=== PATIENT | female | born 1970 | race African-American/Black ===

== ENCOUNTER 2024-12-02 14:21 | Emergency (ER) | payer MEDICAID ==
[~2024-12-02] VITALS: Ht 154.9 cm; Wt 80.6 kg
[~2024-12-02 14:21] MED LIST: CLON0.1T PO; MET25T PO
[2024-12-02 15:02] VITALS: BP 103/54; PULSE 54; RESP 18; TEMP 97.8; O2SAT 94
[2024-12-02 15:14] LABS: Urine Bacteria None Seen /hpf (None Seen)
--- NOTE | 2024-12-02 15:21 | ED.PDOC ---
History of Present Illness HPI Comments A 54 YEAR OLD FEMALE PRESENTS TO THE ED WITH COMPLAINT OF AUDITORY HALLUCINATIONS DUE TO ALCOHOL WITHDRAWAL. PATIENT STATES SHE HAS A HISTORY OF ALCOHOLISM AND HAS NOT BEEN DRINKING ALCOHOL FOR THE PAST 3 DAYS. PATIENT REPORTS SHE HAS BEEN EXPERIENCING AUDITORY HALLUCINATIONS DUE TO WITHDRAWING F ROM ALCOHOL. PATIENT IS ALSO REQUESTING A MEDICATION REFILL. PATIENT DENIES SI, HI, FEVER, CHILLS, SHORTNESS OF BREATH, CHEST PAIN, ABDOMINAL PAIN, NAUSEA, VOMITING, HEADACHE, OR OTHER COMPLAINTS. NO OTHER SYMPTOMS OR MODIFYING FACTORS AT THIS TIME. PATIENT IS ALERT, ORIENTED X 4, AND HAS STEADY GAIT. Chief Complaint: Withdrawal Time Seen by MD: 14:54 Reviewed Notes: Nurses Notes, Medications, Allergies Allergies: Coded Allergies: Morphine (Verified Allergy, Unknown, 12/11/23) Home Meds Active Scripts Hydroxyzine Hcl (Hydroxyzine Hcl) 50 Mg Tab, 1 TAB PO TID, #60 TAB Prov:SYLVESTER ODONNELL 12/02/24 Gabapentin (Gabapentin) 600 Mg Tab, 1 TAB PO TID, #60 TAB Prov:SYLVESTER ODONNELL 12/02/24 Metoprolol Tartrate (Lopressor) 25 Mg Tb, 25 MG PO DAILY, #30 TAB 0 Refills Prov:SYLVESTER ODONNELL 12/11/23 Clonidine Hydrochloride (Clonidine Hcl) 0.1 Mg Tab, 1 TAB PO DAILY, #30 TAB Prov:SYLVESTER ODONNELL 12/11/23 Information Source: Patient Mode of Arrival: Ambulatory Severity: Moderate Timing: Days Duration: Since onset, Days Prehospital treatment: None Medication Refill: For: Other (AUDITORY HALLUCINATIONS DUE TO ETOH WITHDRAWAL) Past Medical History PAST MEDICAL HISTORY: Anxiety, CHF, Depression, HTN Past Medical History (Other): BIPOLAR Surgical History: Denies all surgeries ASSOCIATE SCIENTIST History: No Pertinent ASSOCIATE SCIENTIST History Family History Family History: Reviewed,noncontributory to illness, No family hx of Cancer, No family hx of DM, No family hx of Heart celio, No family hx of HTN, No family hx ofKidney celio, No family hx of Liver celio, No family hx of Lung celio, No family hx of Stroke Social History Smoker: Non-Smoker Alcohol: Denies ETOH Use Drugs: Denies Drug Use Lives In: Home Constitutional: reports: others (ANXIOUS ); denies: chills, diaphoresis, fatigue, fever, malaise, sweats, weakness EENTM: denies: blurred vision, double vision, ear bleeding, ear discharge, ear drainage, ear pain, ear ringing, eye pain, eye redness, hearing loss, mouth pain, mouth swelling, nasal discharge, nose bleeding, nose congestion, nose pain, photophobia, tearing, throat pain, throat swelling, voice changes, others Respiratory: denies: cough, hemoptysis, orthopnea, SOB at rest, shortness of breath, SOB with excertion, stridor, wheezing, others Cardiovascular: denies: chest pain, dizzy spells, diaphoresis, Dyspnea on exertion, edema, irregular heart beat, left arm pain, lightheadedness, palp itations, PND, syncope, others Gastrointestinal: denies: abdomen distended, abdominal pain, blood streaked bowels, constipated, diarrhea, dysphagia, difficulty swallowing, hematemesis, melena, nausea, poor appetite, poor fluid intake, rectal bleeding, rectal pain, vomiting, others Genitourinary: denies: abnormal vagina bleeding, burning, dyspareunia, dysuria, flank pain, frequency, hematuria, incontinence, pain, , vagina discharge, urgency, others Neurological: reports: tingling; denies: dizziness, fainting, headache, left sided numbness, left sided weakness, numbness, paresthesia, pre-existing deficit, right sided numbness, right sided weakness, seizure, speech problems, tremors, weakness, others Musculoskeletal: denies: back pain, gout, joint pain, joint swelling, muscle pain, muscle stiffness, neck pain, others Integumetry: denies: bruises, change in color, change in hair/nails, dryness, laceration, lesions, lumps, rash, wounds, others Allergic/Immunocompromised: denies: Difficulty Healing, Frequent Infections, Hives, Itching, others Hematologic/Lymphatic: denies: anemia, blood clots, easy bleeding, easy bruising, swollen glands, others Endocrine: denies: excessive hunger, excessive sweating, excessive thirst, excessive urination, flushing, intolerance to cold, intolerance to heat, unexplained weight gain, unexplained weight loss, others Psychiatric: reports: anxiety, others (AUDITORY HALLUCINATIONS); denies: bipolar disorder, depression, hopeless, panic disorder, schizophrenia, sleepless, suicidal All Other Systems: Reviewed and Negative Physical Exam General Appearance: No Apparent Distress, Normal, Other (ANXIOUS ) HEENT: Normal ENT Inspection, PERRL/EOMI, Pharynx Normal, TMs Normal Neck: Full Range of Motion, Non-Tender, Normal, Normal Inspection Respiratory: Chest Non-Tender, Lungs Clear, No Accessory Muscle Use, No Respiratory Distress, Normal Breath Sounds Cardiovascular: No Edema, No JVD, No Murmur, No Gallop, Normal Peripheral Pulses, Regular Rate/Rhythm Breast Exam: Deferred Gastrointestinal: No Organomegaly, Non Tender, No Pulsatile Mass, Normal Bowel Sounds, Soft Genitalia: Deferred Pelvic: Deferred Rectal: Deferred Extremities: No calf tenderness, Normal capillary refill, Normal inspection, Normal range of motion, Non-tender, No pedal edema Musculoskeletal : Apperance: Normal Neurologic: Alert, chemist physical II-XII nml as Tested, No Motor Deficits, Normal Affect, Normal Mood, No Sensory Deficits Cerebellar Function: Normal Reflexes: Normal Skin: Dry, Normal Color, Warm Peripheral Pulses: 2+ carotid (R), 2+ carotid (L) Lymphatic: No Adenopathy Was a procedure done? Was a procedure done?: No Differential Dx Considerations may include: AUDITORY HALLUCINATIONS, ETOH WITHDRAWAL, DEHYDRATION, ELECTROLYTE IMBALANCE, UTI, ACUTE CYSTITIS X-Ray, Labs, Meds, VS Vital Signs Date Time Temp Pulse Resp B/P (MAP) Pulse Ox O2 Delivery O2 Flow Rate FiO2 12/02/24 15:02 97.8 54 18 103/54 (70) 94 97.8 12/02/24 15:02 54 18 94 Room Air 12/02/24 14:45 97.5 54 18 103/54 (70) 94 97.5 Lab Test 12/02/24 15:23 12/02/24 15:13 Range/Units White Blood Count 11.7 H 4.4-10.8 10^3/uL Red Blood Count 4.40 4.0-5.20 10^6/uL Hemoglobin 13.5 12.2-16.2 g/dL Hematocrit 41.3 36.0-46.0 % Mean Corpuscular Volume 93.9 80.0-100.0 fL Mean Corpuscular Hemoglobin 30.8 28.0-32.0 pg Mean Corpuscular Hemoglobin Concent 32.8 32.0-36.0 g/dL Red Cell Distribution Width 14.6 H 11.8-14.3 % Platelet Count 327 140-450 10^3/uL Mean Platelet Volume 8.1 6.9-10.8 fL Neutrophils (%) (Auto) 56.4 37.0-80.0 % Lymphocytes (%) (Auto) 28.8 10.0-50.0 % Monocytes (%) (Auto) 10.9 0.0-12.0 % Eosinophils (%) (Auto) 2.7 0.0-7.0 % Basophils (%) (Auto) 1.2 0.0-2.0 % Neutrophils # (Auto) 6.6 1.6-8.6 10 ^3/uL Lymphocytes # (Auto) 3.4 0.4-5.4 10 ^3/uL Monocytes # (Auto) 1.3 0-1.3 10 ^3/uL Eosinophils # (Auto) 0.3 0-0.8 10 ^3/uL Basophils # (Auto) 0.1 0-0.2 10 ^3/uL Nucleated Red Blood Cells 0.1 % Sodium Level 137 136-145 mmol/L Potassium Level 4.6 3.5-5.1 mmol/L Chloride Level 106 98-107 mmol/L Carbon Dioxide Level 22 20-31 mmol/L Anion Gap 9 5-15 Blood Urea Nitrogen 14 9-23 mg/dL Creatinine 0.88 0.550-1.02 mg/dL Glomerular Filtration Rate Calc 79 >90 mL/min BUN/Creatinine Ratio 15.9 10.0-20.0 Serum Glucose 118 H 74-106 mg/dL Calcium Level 9.4 8.7-10.4 mg/dL Plasma/Serum Blood Alcohol < 3.0 <10 mg/dL Urine Color Yellow Yellow Urine Clarity Clear Clear Urine pH 7.0 5.0-9.0 Urine Specific [place] 1.026 1.001-1.035 Urine Protein Trace H Negative Urine Ketones Negative Negative Urine Blood 1+ H Negative /uL Urine Nitrite Negative Negative Urine Bilirubin Negative Negative Urine Urobilinogen 3 H Negative mg/dL Urine Leukocyte Esterase Negative Negative /uL Urine RBC 5 0 - 4 /hpf Urine Microscopic WBC 2 0-5 /HPF Urine Squamous Epithelial Cells Few <5 /hpf Urine Bacteria None seen None Seen /hpf Urine Mucus Few None Seen Urine Glucose Normal Normal mg/dL Urine Opiates Screen Neg NEGATIVE Urine Fentanyl Screen Neg NEGATIVE Urine Barbiturates Screen Neg NEGATIVE Urine Phencyclidine Screen Neg NEGATIVE Urine Amphetamines Screen Pos NEGATIVE Urine Benzodiazepines Screen Neg NEGATIVE Urine Cocaine Screen Neg NEGATIVE Urine Cannabinoids Screen Neg NEGATIVE Current Medications Medications (Trade) Dose Ordered Sig/Lianna Route Start Time Stop Time Status Last Admin Sodium Chloride 1,000 ml @ 1,000 mls/hr Q1H ONCE IV 12/02/24 15:15 12/02/24 16:14 DC 12/02/24 15:23 X-Ray, Labs, Meds, VS Comment EXTERNAL MEDICAL RECORDS REVIEWED: [NONE] INDEPENDENT HISTORIANS: [NONE] SOCIAL DETERMINANTS OF HEALTH: [NONE] LABS ORDERED: CBC, BNP, UA, UDS, BLOOD ETOH REVIEWED AND INTERPRETED RESULTS: METHAMPHETAMINE POSITIVE IMAGING ORDERED: NONE TREATMENTS ORDERED: NS 1 L IV THE PATIENT REPORTED FEELING MUCH BETTER AFTER RECEIVING IV TREATMENT, AND NO LONGER HEARS VOICES/AUDITORY HALLUCINATIONS. PROCEDURES PERFORMED: NONE CRITICAL CARE TIME: NONE I HAVE DISCUSSED THE PATIENT WITH THE ATTENDING PHYSICIAN DR. KING AND HE AGREES WITH THE PATIENT'S PLAN OF CARE AND DISPOSITION. BASED ON HISTORY OF PRESENT ILLNESS, AND PHYSICAL EXAM, PATIENT WILL BE DISCHARGED HOME. SHARED DECISION MAKING: PATIENT INSTRUCTED TO FOLLOW UP WITH PRIMARY CARE PROVIDER IN 1-2 DAYS FOR RE-EVALUATION OF SYMPTOMS. PATIENT VERBALIZES UNDERSTANDING TO RETURN TO ED FOR NEW OR WORSENING SYMPTOMS OR IF FOLLOW UP WITH PCP CANNOT BE OBTAINED. PATIENT FEELS COMFORTABLE GOING HOME AT THIS TIME. ALL QUESTIONS ADDRESSED AT TIME OF DISCHARGE. Time of 1ST Reevaluation: 17:00 Reevaluation 1ST: Improved Patient Education/Counseling: Diagnosis, Treatment, Need For Follow Up Family Education/Counseling: Diagnosis, Treatment, Need For Follow Up Medical Screening: No EMC Exist At This Time Departure 1 Departure Time of Disposition: 17:00 Impression: Primary Impression: Alcohol withdrawal syndrome Qualified Codes: F10.939 - Alcohol use, unspecified with withdrawal, unspecified Additional Impressions: Methamphetamine abuse Medication refill Disposition: HOME / SELF CARE / HOMELESS Condition: Stable Additional Instructions: FOLLOW-UP WITH PCP IN 1 TO 2 DAYS. RETURN TO ED FOR ANY NEW OR WORSENING SYMPTOM S. e-Prescriptions Hydroxyzine Hcl (Hydroxyzine Hcl) 50 Mg Tab 1 TAB PO TID, #60 TAB Prov: SYLVESTER ODONNELL 12/02/24 Gabapentin (Gabapentin) 600 Mg Tab 1 TAB PO TID, #60 TAB Prov: SYLVESTER ODONNELL 12/02/24 Discharged With: Self, Relative Critical Care Note Critical Care Time?: No Stability Stability form required: No I personally scribed for SYLVESTER ODONNELL ([email or web address]) on 12/02/24 at 15:21. Electronically submitted by David Morales ([employer]). I personally scribed for SYLVESTER ODONNELL ([email or web address]) on 12/02/24 at 16:32. Electronically submitted by David Morales ([email or web address]). I personally scribed for SYLVESTER ODONNELL ([email or web address]) on 12/02/24 at 16:36. Electronically submitted by David Morales ([email or web address]). SYLVESTER ODONNELL Dec 02, 2024 15:21
[2024-12-02] MEDS: SODIUM CHLORIDE 0.9% 1,000 ML IV ONE (15:23)
[2024-12-02 15:37] LABS: Urine Blood 1+ /uL (Negative); Urine Clarity Clear (Clear); Urine Color Yellow (Yellow); Urine Mucus FEW (None Seen); Urine Protein, UAD TRACE (Negative); Urine Specific Gravity 1.026 (1.001-1.035); Urine Squamous Epithelial Cell FEW /hpf (<5); Urine Urobilinogen 3 mg/dL (Negative); Urine WBC 2 /HPF (0-5)
[2024-12-02 15:40] LABS: Basophils # (auto) 0.1 10 ^3/uL (0-0.2); Basophils % (auto) 1.2 % (0.0-2.0); Eosinophils # (auto) 0.3 10 ^3/uL (0-0.8); Eosinophils % (auto) 2.7 % (0.0-7.0); Hematocrit 41.3 % (36.0-46.0); Hemoglobin 13.5 g/dL (12.2-16.2); Lymphocytes # (auto) 3.4 10 ^3/uL (0.4-5.4); Lymphocytes % (auto) 28.8 % (10.0-50.0); Mean Corpuscular Hemoglobin 30.8 pg (28.0-32.0); Mean Corpuscular Hgb Conc. 32.8 g/dL (32.0-36.0); Mean Corpuscular Volume 93.9 fL (80.0-100.0); Monocytes # (auto) 1.3 10 ^3/uL (0-1.3); Monocytes % (auto) 10.9 % (0.0-12.0); Neutrophils # (auto) 6.6 10 ^3/uL (1.6-8.6); Neutrophils % (auto) 56.4 % (37.0-80.0); Nucleated Red Blood Cells % 0.1 %; Platelet Count (auto) 327 10^3/uL (140-450); Red Cell Distribution Width 14.6 % (11.8-14.3); White Blood Cell 11.7 10^3/uL (4.4-10.8)
[2024-12-02 15:52] LABS: Chloride 106 mmol/L (98-107); Potassium 4.6 mmol/L (3.5-5.1); Sodium 137 mmol/L (136-145)
[2024-12-02 15:53] LABS: Anion Gap 9 (5-15); Calcium 9.4 mg/dL (8.7-10.4); Carbon Dioxide 22 mmol/L (20-31)
[2024-12-02 15:58] LABS: Cannabinoid Screen, Urine Neg (NEGATIVE)
[2024-12-02 15:58] LABS: BUN/Creatinine Ratio 15.9 (10.0-20.0); Blood Urea Nitrogen 14 mg/dL (9-23)
[2024-12-02 16:00] LABS: Amphetamine Screen, Urine Pos (NEGATIVE); Barbiturate Scree,Urine Neg (NEGATIVE); Benzodiazephine Screen, Urine Neg (NEGATIVE); Cocaine Screen, Urine Neg (NEGATIVE); Opiate Scree,Urine Neg (NEGATIVE); Phencyclidine Screen, Urine Neg (NEGATIVE)
[2024-12-02 16:00] LABS: Blood Alcohol < 3.0 mg/dL (<10); Glucose 118 mg/dL (74-106)
[2024-12-02] MEDS ORDERED: GABA-339 PO (16:42)
[2024-12-02] MEDS ORDERED: HYDR50TA69 PO (16:42)
== END 2024-12-02 16:39 | disposition home or self-care (01) ==
LOC: ER 14:36
DX: F10.239 Alcohol dependence with withdrawal, unspecified (principal); F15.10 Other stimulant abuse, uncomplicated; F41.9 Anxiety disorder, unspecified; I11.0 Hypertensive heart disease with heart failure; I50.9 Heart failure, unspecified; Z79.899 Other long term (current) drug therapy; Z76.0 Encounter for issue of repeat prescription; Z88.5 Allergy status to narcotic agent; Y90.9 Presence of alcohol in blood, level not specified
CPT/HCPCS: 36415; 80048; 80307; 80320; 81001; 85025; 96360; 99283; J7030